=== PATIENT | female | born 1950 | race Caucasian/White ===

== ENCOUNTER → 2016-09-11 | Outpatient (CLI) | payer MEDICARE, OTHER ==
--- NOTE | 2016-09-14 14:51 | SLEEPCENT ---
DATE OF STUDY: 09/11/2016 ORDERED BY: Birdie Boyd Nocturnal polysomnography was performed due to the concern for the obstructive sleep apnea syndrome in this patient with a history of excessive somnolence and nonrestorative sleep. 8 hours and 54 minutes of data were reviewed. There were 354 minutes of sleep identified. Sleep latency was prolonged at 122 minutes. Rapid eye movement (REM) latency was prolonged at 377 minutes. Sleep architecture was fragmented with poor sleep progression. Overall sleep efficiency was mildly 67.9%. Electrocardiogram (EKG) showed a sinus rhythm with an average heart rate of 82 beats per minute. Electroencephalogram (EEG) showed normal waveforms for awake and sleep. There were 131 respiratory events identified of 10 seconds in duration or greater for an apnea-hypopnea index of 22.2. The events were primarily obstructive, not exclusive to sleep stage nor body posture. Arousals from respiratory events occurred 15.3 times per hour and oxygen desaturations were seen into the upper 80s with some limb activity, but arousals from limb events were few. IMPRESSION: Obstructive sleep apnea syndrome (G47.33), apnea-hypopnea index 22.2. RECOMMENDATION: The patient should be encouraged to return to the sleep disorder center for pressure therapy. In the interim, alcohol and sedative avoidance should be practiced and caution exercised during the operation of motor vehicles.
== END ==
LOC: M SLEEP 19:41
PROVIDERS: ATTEND Nurse Practitioner Adult Health
DX: G47.33 Obstructive sleep apnea (adult) (pediatric) (principal)

== ENCOUNTER → 2016-10-07 | Outpatient (CLI) | payer MEDICARE, OTHER ==
--- NOTE | 2016-10-13 08:22 | SLEEPCENT ---
DATE OF PROCEDURE: 10/07/2016 ORDERED BY: Birdie Boyd Nocturnal polysomnography was performed for titration of pressure therapy in this patient with obstructive sleep apnea syndrome, apnea-hypopnea index of 22. For testing, the patient was fit with a [employer]te AirFit N2 nasal mask of small size. 4 cm of water pressure were applied to the circuit, and the lights were extinguished. 7 hours and 56 minutes of data were reviewed. There were 351 minutes of sleep identified. Sleep latency was mildly prolonged at 28.5 minutes. Rapid eye movement (REM) latency was more so prolonged at 129 minutes. Sleep architecture was fair. There was a period of wake around 1:30 to 2:30 resulting in reduced sleep efficiency of 75% but two REM periods were seen. Overall sleep efficiency but two REM periods were seen. The patient's EKG showed a sinus rhythm with an average heart rate of 88 beats per minute. EEG showed normal waveforms for awake and sleep. Respiratory events were poorly palliated with continuous positive airway pressure (CPAP) at a pressure of +7. There was perhaps more limb activity on this study than on the diagnostic night. However, arousals from limb events were only 2.4 per hour. IMPRESSION: Obstructive sleep apnea syndrome (G47.33). RECOMMENDATION: Nightly use of pressure therapy 7 cm of water. Copy To: Jojo Felipe
== END ==
LOC: M SLEEP 19:31
PROVIDERS: ATTEND Nurse Practitioner Adult Health
DX: G47.33 Obstructive sleep apnea (adult) (pediatric) (principal)

== ENCOUNTER → 2018-02-26 | Outpatient (CLI) | payer MEDICARE, OTHER ==
--- NOTE | 2018-02-26 10:55 | REP ---
MR CERVICAL SPINE WITHOUT CONTRAST: HISTORY: T12 fracture. A disc bulge is present at the C3-4 level. There is minimal effacement of the thecal sac without spinal cord compression. The C3 neural foramina are patient. A disc bulge and small central disc protrusion are present at the C4-5 level. There is mild effacement of the thecal sac without spinal cord compression. The C4 neural foramina are patent. A disc bulge with associated osteophyte formation is present at the C5-6 level. There is mild effacement of the thecal sac without spinal cord compression. Bilateral uncinate process hypertrophy is present. This produced minimal narrowing at the C5 neural foramina. There is no other disc bulge or herniation. The remaining neural foramina are patent. The spinal cord is normal in signal intensity. The C4-5 and C5-6 intervertebral discs are decreased in height consistent with disc degeneration. Increased signal intensity on T2-weighted images is present in the endplates of the C5 and C6 vertebral bodies. This represents degenerative change. IMPRESSION: There is cervical spondylosis at the C3-4 through C5-6 levels without spinal cord compression. Electronically Signed by Malvin Peacock MD 02/26/2018 10:58 A
--- NOTE | 2018-02-26 11:04 | REP ---
MRI THORACIC SPINE WITHOUT CONTRAST: HISTORY: T12 fracture. A small right paracentral disc protrusion is present at the T9-10 level. There is minimal effacement of the thecal sac without spinal cord compression. The T9 neural foramina are patent. There is no other disc bulge or herniation. The remaining neural foramina are patent. The spinal cord is normal in signal intensity. Heterogenous increased signal intensity on T2-weighted images is present in the T11 vertebral body. There is minimal loss of vertebral body height. There is very minimal retropulsion. This represents a subacute fracture. There is no subluxation. Increased signal intensity on T2-weighted images is present in the endplates of several mid and lower thoracic vertebral bodies. This represents degenerative change. IMPRESSION: 1. Small left paracentral disc protrusion at the T9-10 level without spinal cord compression. 2. Subacute T11 compression fracture with minimal height loss and retropulsion. CT of the thoracic spine is recommended for further evaluation. Electronically Signed by Malvin Peacock MD 02/26/2018 11:09 A
== END ==
LOC: M RAD 08:58
PROVIDERS: ATTEND Family Medicine
DX: M85.89 Other specified disorders of bone density and structure, multiple sites (principal)

== ENCOUNTER → 2018-04-29 | Outpatient (CLI) | payer MEDICARE, OTHER ==
--- NOTE | 2018-04-29 14:01 | REP ---
Urinary tract sonography: History: Kidney stone. Findings: Scanning at the level of the urinary bladder demonstrates smooth bladder geller. Pre void bladder volume is calculated at 293 mL. Postvoid residual is 1.4 mL, 0.5% . There is a 9 mm shadowing calculus in the dependent portion of the urinary bladder consistent with a small bladder stone. Emptying ureteral jets are confirmed bilaterally on Doppler interrogation of the bladder lumen. Renal cortical echogenicity pattern is normal bilaterally. There is a cyst in the right mid to upper kidney measuring 4.4 x 4.0 x 3.9 cm. An upper pole cyst is noted in the left kidney 1.8 cm in diameter. There is an echogenic focus suggesting an intrarenal calculus at the lower pole of the left kidney 7 mm in diameter. There is mild right-sided hydronephrosis and hydroureter. Right renal dimensions are 10.7 x 6.2 x 5.7 cm. Left kidney measures 11.0 x 4.5 x 5.6 cm. Impression: Bilateral renal cysts. Probable stone lower pole left kidney intrarenal. Mild right-sided hydronephrosis. Bilateral emptying ureteral jets are observed on real time Doppler visualization of the urinary bladder. There is a 9 mm calculus in the dependent portion of the bladder. Electronically Signed by Dedrick Finn MD 04/29/2018 03:12 P
== END ==
LOC: M RAD 12:29
PROVIDERS: ATTEND Nurse Practitioner Family
DX: N20.0 Calculus of kidney (principal); N28.1 Cyst of kidney, acquired; N21.0 Calculus in bladder

== ENCOUNTER → 2025-01-31 | Outpatient (CLI) | payer MEDICARE, OTHER ==
[~2025-01-31] MED LIST: METHACHOLINE KIT (6 VIAL.NEB PREMIX) INH ONE
== END ==
LOC: M CARPUL 13:32
PROVIDERS: ATTEND Nurse Practitioner Adult Health
DX: R06.02 Shortness of breath (principal)
CPT/HCPCS: 88738; 94010; 94070; 94726; 94729; 95070; J7674